=== PATIENT | female | born 1995 | race Caucasian/White ===

== ENCOUNTER 2016-12-22 21:56 | Inpatient (IN) | payer OTHER ==
[2016-12-22 22:39] LABS: ROM Internal QC QC Line Present
[2016-12-23] MEDS ORDERED: Nalbuphine* 20 MG/ML 1 ML VIAL IM PRN (00:49)
[2016-12-23] MEDS ORDERED: Promethazine INJ(RESTRICTED)* 25 MG/ML 1 ML VIAL IM PRN (00:50)
[2016-12-23 07:48] LABS: Hematocrit 37 % (35-47); Hemoglobin 12.3 g/dl (12.0-16.0); Mean Corpuscular HGB Conc 34 g/dl (31-36); Mean Corpuscular Hemoglobin 30 pg (27-31); Mean Corpuscular Volume 88 fL (80-97); Mean Platelet Volume 10 um3 (7.4-10.4); Red Blood Count 4.15 10^6/ul (4.0-5.4); Red Cell Distribution Width 13 % (10.5-15); White Blood Count 14.1 10^3/ul (3.5-10.8)
[2016-12-23] MEDS ORDERED: Oxytocin in LR* 20 UNITS/1,000 ML BAG IVPB SCH (08:00)
[2016-12-23] MEDS ORDERED: Oxytocin in LR* 20 UNITS/1,000 ML BAG IVPB ONE (08:08)
[2016-12-23] MEDS ORDERED: OBEPIDURAL* 250 ML ONE (11:50)
[2016-12-23] MEDS ORDERED: Sodium Citrate/Citric Acid* 15 ML UDC PO PRN (12:30)
[2016-12-23] MEDS ORDERED: Phenylephrine IV* 40 MCG/ML 10 ML SYRINGE IV PUSH PRN ×2 (12:30)
[2016-12-23] MEDS ORDERED: Sodium Citrate/Citric Acid* 15 ML UDC ONE (15:13)
[2016-12-24] MEDS ORDERED: ceFOXitin 2 GM IVPREMIX* 2 GM/50 ML BAG ONE (01:32)
[2016-12-24] MEDS ORDERED: Lidocaine 2% PF* 10 ML AMP ONE (02:09)
[2016-12-24] MEDS ORDERED: fentaNYL* 50 MCG/ML 2 ML VIAL (100 MCG VIAL) ONE (02:11)
[2016-12-24] MEDS ORDERED: OXYTOCIN* 10 UNITS/ML 1 ML VIAL ONE (02:11)
[2016-12-24] MEDS ORDERED: fentaNYL* 50 MCG/ML 2 ML VIAL (100 MCG VIAL) IV PRN (02:26)
[2016-12-24] MEDS ORDERED: HYDROcodone/ACETAMIN 5-325 MG* 1 TAB PO PRN (02:26)
[2016-12-24] MEDS ORDERED: Ondansetron INJ* 2 MG/ML VIAL IV PRN ×2 (02:26→02:27)
[2016-12-24] MEDS ORDERED: DiMENhydriNATE IV* 50 MG/ML VIAL IV PUSH PRN ×2 (02:26→02:55)
[2016-12-24] MEDS ORDERED: HYDROmorphone INJ* 1 MG/ML CARPUJECT SYRINGE IV PRN (02:26)
[2016-12-24] MEDS ORDERED: oxyCODONE TAB* 5 MG TAB PO PRN (02:26)
[2016-12-24] MEDS ORDERED: Nalbuphine* 20 MG/ML 1 ML VIAL IV PRN (02:27)
[2016-12-24] MEDS ORDERED: Naloxone* 0.4 MG/ML 1 ML VIAL IV PRN (02:27)
[2016-12-24] MEDS ORDERED: oxyCODONE/Acetamin 5/325 MG* TAB PO PRN (02:27)
[2016-12-24] MEDS ORDERED: Naloxone* 2 MG in NS 0.9% 250 ML* 250 ML IV PRN (02:27)
[2016-12-24] MEDS ORDERED: diPHENhydraMINE IV* 50 MG/ML 1 ml VIAL (BENADRYL) IV PRN (02:27)
[2016-12-24] MEDS ORDERED: Phenylephrine IV* 40 MCG/ML 10 ML SYRINGE ONE (02:33)
[2016-12-24] MEDS ORDERED: Morphine PF AMP (0.5MG/ML)* 5 MG/10 ML AMP ONE (02:48)
[2016-12-24] MEDS ORDERED: Witch Hazel PAD* JAR TOPICAL PRN (03:22)
[2016-12-24] MEDS ORDERED: Dibucaine 1% 28.35 GM TUBE PR PRN (03:22)
[2016-12-24] MEDS ORDERED: Acetaminophen TAB* 325 MG PO PRN (03:22)
[2016-12-24] MEDS ORDERED: Glycerin ADULT SUPP PR PRN (03:22)
[2016-12-24] MEDS ORDERED: Oxytocin in LR* 20 UNITS/1,000 ML BAG IVPB SCH (04:00)
[2016-12-24] MEDS: OBEPIDURAL* 250 ML EPIDURAL SCH (05:39)
[2016-12-24] MEDS: Ketorolac INJ* 30 MG/ML 1 ML VIAL IV PRN ×3 (05:47→18:28)
[2016-12-24] MEDS: Docusate CAP* 100 MG PO SCH ×3 (08:26→21:21)
[2016-12-24] MEDS: HYDROcodone/ACETAMIN 5-325 MG* 1 TAB PO PRN ×3 (08:26→17:44)
[2016-12-24] MEDS: Simethicone TAB* 80 MG TAB.CHEW PO SCH ×4 (08:26→21:22)
[2016-12-24] MEDS ORDERED: Varicella Virus Vaccine Live* 0.5 ML VIAL SUBCUT ONE (09:00)
--- NOTE | 2016-12-24 09:54 | OP ---
DATE OF OPERATION: 12/24/16 - ROOM #116 DATE OF : 89 SURGEON: Shanta Hunter MD ESCALATOR SERVICE MECHANIC: Lena Garvey CNM ANESTHESIOLOGIST: Dr. Webster. ANESTHESIA: Epidural. PRE-OP DIAGNOSIS: 39 and 1/7th weeks intrauterine , category II heart tracing, remote from delivery. POST-OP DIAGNOSIS: 39 and 1/7th weeks intrauterine , category II heart tracing, remote from delivery. OPERATIVE PROCEDURE: Primary low transverse section. ESTIMATED BLOOD LOSS: 700 cc. URINE OUTPUT: 300 cc of clear yellow urine. FLUIDS: 1500 cc of crystalloid. FINDINGS: Revealed a vertex , left occiput transverse. Apgars 9 at one minute and 9 at five minutes. No nuchal cord, no meconium. Three-vessel cord, calcified placenta intact, manually extracted. Normal-appearing tubes and ovaries bilaterally. Normal uterine cavity without evidence of retained placental tissue or membranes. COMPLICATIONS: None apparent. DISPOSITION: Stable to recovery room. DESCRIPTION OF PROCEDURE: The patient was placed in dorsal lithotomy position. The abdomen was prepped and draped in a sterile standard fashion. The patient was identified with universal protocol. Anesthesia was tested to appropriate level. Two fingerbreadths above the pubic symphysis, an incision was made with a scalpel. This was carried down through the fascia. The fascia was scored in the midline. The incision extended laterally and superiorly using curved Jerez scissors. The fascia was with blunt and sharp dissection from the rectus muscle both superiorly and inferiorly. The peritoneum was then entered bluntly. Bladder blade was inserted. The lower uterine segment was identified , tented up with an Allis. An incision was made in the lower uterine segment. This was carried down through the muscle. The uterine incision was extended laterally and superiorly using bandage scissors. Clear fluid was noted. The was found to be wedged in the left occiput transverse position. The head was delivered, anterior posterior shoulder was delivered. The baby was vigorous at the field. Cord was then milked, doubly clamped and then cut, and the was handed off to awaiting data management associate, Dr. Chiu. Appropriate cord blood was obtained. Placenta was then manually extracted, noted to be calcified but intact. Uterus was exteriorized. Cavity was wiped clean with moist laparotomy sponge and noted to be free of any membranes or placental tissue. The tubes and ovaries were noted to have a normal appearance. The incision itself was then clamped with broad Allises. The incision was closed using 0 Vicryl x2 with the first layer using running lock. There was a small T at the midline. This was reapproximated using 0 Vicryl in a running locked, and then the second imbrication level was carried out using 0 Vicryl and the small T-area was imbricated, inferior T extension was imbricated with complete reapproximation and hemostasis of the uterine incision. The uterus was returned intraabdominally. Colic gutters were lavaged. Hysterotomy site was visualized and noted to be hemostatic. The peritoneum was then grasped with Cassidy's and the peritoneum itself was reapproximated using 3-0 Vicryl in a running fashion. Subfascial area was visualized. Hemostasis was assured with Bovie coagulation, and the fascia itself was reapproximated using 0 Vicryl x2 in a running fashion. Subcu was lavaged, noted to be less than 2 cm thickness. After Bovie coagulation, the skin was then reapproximated using 4-0 Monocryl in a subcuticular fashion. Mastisol and Steri-Strips were applied. All sponge , instruments, and blade counts were correct throughout the case. The patient tolerated the procedure well and went to recovery room in stable condition. [id number]/[facility] #: [id number] ANNETTE
[2016-12-24] MEDS: oxyCODONE/Acetamin 5/325 MG* TAB PO PRN (21:22)
[2016-12-25] MEDS: Ketorolac INJ* 30 MG/ML 1 ML VIAL IV PRN (01:42)
[2016-12-25 07:06] LABS: Hematocrit 28 % (35-47); Hemoglobin 9.3 g/dl (12.0-16.0); Mean Corpuscular HGB Conc 33 g/dl (31-36); Mean Corpuscular Hemoglobin 30 pg (27-31); Mean Corpuscular Volume 89 fL (80-97); Mean Platelet Volume 9 um3 (7.4-10.4); Red Blood Count 3.13 10^6/ul (4.0-5.4); Red Cell Distribution Width 14 % (10.5-15); White Blood Count 20.2 10^3/ul (3.5-10.8)
[2016-12-25] MEDS: oxyCODONE/Acetamin 5/325 MG* TAB PO PRN ×4 (07:36→21:07)
[2016-12-25] MEDS: Ferrous Gluconate TAB* 324 MG TAB PO SCH ×2 (07:36→20:29)
[2016-12-25] MEDS: Docusate CAP* 100 MG PO SCH ×3 (07:36→20:30)
[2016-12-25] MEDS: Simethicone TAB* 80 MG TAB.CHEW PO SCH ×4 (07:36→20:29)
[2016-12-25] MEDS: Ibuprofen TAB* 600 MG PO PRN ×3 (07:36→20:29)
[2016-12-26] MEDS: Ibuprofen TAB* 600 MG PO PRN ×3 (02:25→19:31)
[2016-12-26] MEDS: oxyCODONE/Acetamin 5/325 MG* TAB PO PRN ×4 (05:34→19:29)
[2016-12-26] MEDS: OBEPIDURAL* 250 ML EPIDURAL SCH (07:06)
[2016-12-26] MEDS ORDERED: Varicella Virus Vaccine Live* 0.5 ML VIAL SUBCUT ONE (09:00)
[2016-12-26] MEDS: Simethicone TAB* 80 MG TAB.CHEW PO SCH ×4 (09:13→21:15)
[2016-12-26] MEDS: Docusate CAP* 100 MG PO SCH ×3 (09:13→21:15)
[2016-12-26] MEDS: Ferrous Gluconate TAB* 324 MG TAB PO SCH ×2 (09:14→21:15)
[2016-12-26 19:54] VITALS: BP 112/60
[2016-12-27] MEDS: oxyCODONE/Acetamin 5/325 MG* TAB PO PRN ×2 (01:43→07:48)
[2016-12-27] MEDS: Ibuprofen TAB* 600 MG PO PRN ×2 (01:44→07:47)
[2016-12-27] MEDS: Simethicone TAB* 80 MG TAB.CHEW PO SCH (07:46)
[2016-12-27] MEDS: Docusate CAP* 100 MG PO SCH (07:46)
[2016-12-27] MEDS: Ferrous Gluconate TAB* 324 MG TAB PO SCH (07:46)
--- NOTE | 2016-12-27 11:07 | PTEDU ---
Patient Name: WIN ORDONEZ WIN ORDONEZ selected video: Follow Me Mum: The [employer] to Successful to view on 12/27 at 11:06:30 AM from [id number]
== END 2016-12-27 12:30 | disposition home or self-care (01) | DRG 540 ==
LOC: MCHOBOUT 21:56 → MCHOB 23:01
PROVIDERS: ADMIT Obstetrics & Gynecology; ATTEND Obstetrics & Gynecology
PROC: 10D00Z1 Extraction of Products of Conception, Low, Open Approach (ICD-10-PCS; principal; 2016-12-27)
PROC: 10H07YZ Insertion of Other Device into Products of Conception, Via Natural or Artificial Opening (ICD-10-PCS; 2016-12-27)
DX: O76 Abnormality in fetal heart rate and rhythm complicating labor and delivery (principal); O64.0XX0 Obstructed labor due to incomplete rotation of fetal head, not applicable or unspecified; O90.81 Anemia of the puerperium; Z3A.39 39 weeks gestation of pregnancy; Z37.0 Single live birth
CPT/HCPCS: 36415; 84112; 85025; 86850; 86900; 86901; A9270-GY; J0694; J1885; J2001; J2590; J3010